=== PATIENT | female | born 1960 | race Caucasian/White ===

== ENCOUNTER 2016-09-20 14:44 | Emergency (ER) | payer OTHER ==
[~2016-09-20] VITALS: Ht 170.2 cm; Wt 73.6 kg
[~2016-09-20 14:44] MED LIST: ASPI81TA3 PO; MULT-36 PO; PRAV10TA2 PO
[2016-09-20 14:54] VITALS: BP 148/90; PULSE 66; RESP 18; O2SAT 96
--- NOTE | 2016-09-20 16:51 | DRSVH ---
PROCEDURE: X-RAY CHEST, TWO VIEWS ([id number]) INDICATIONS: CHEST PAIN TECHNIQUE: 2 views of the chest were acquired. COMPARISON: None. FINDINGS: Surgical changes and devices: None. Lungs and pleura: No pleural effusions or pneumothorax. Lungs are clear. Mediastinum: Mediastinal contours are normal. Heart size is normal. Bones and chest wall: No suspicious bony abnormalities. Soft tissues appear unremarkable. IMPRESSION: No acute cardiopulmonary disease process. Dictated by: Roya Valdez MD, PhD on 09/20/2016 at 16:48 Approved by: Roya Valdez MD, PhD on 09/20/2016 at 16:49
[2016-09-20 17:07] LABS: BASOPHILS % (AUTO) 0.5 % (0-3); EOSINOPHILS % (AUTO) 2.2 % (0-5); MONOCYTES % (AUTO) 6.7 % (4-12); Mean Corpuscular Hemoglobin 29.2 pg (27.0-35.0); Mean Corpuscular Volume 85.2 fL (81-100); NEUTROPHILS % (AUTO) 57.8 % (40-74); Platelet Count 358 bil/L (150-400)
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
[2016-09-20 17:33] LABS: TROPONIN T < 0.010 ug/L (0.0-0.011)
[2016-09-20 17:44] LABS: Magnesium 2.2 mg/dL (1.6-2.6)
[2016-09-20 19:11] VITALS: BP 116/74; PULSE 58; RESP 14; O2SAT 99
== END 2016-09-20 19:12 | disposition home or self-care (01) ==
LOC: SED 14:44
DX: R07.89 Other chest pain (principal); E78.5 Hyperlipidemia, unspecified; I50.9 Heart failure, unspecified; I25.10 Atherosclerotic heart disease of native coronary artery without angina pectoris; E11.9 Type 2 diabetes mellitus without complications; I10 Essential (primary) hypertension; Z79.82 Long term (current) use of aspirin

== ENCOUNTER 2017-04-16 19:09 | Emergency (ER) | payer OTHER ==
[~2017-04-16] VITALS: Ht 167.6 cm; Wt 74.0 kg
[2017-04-16 19:19] VITALS: BP 133/68; PULSE 66; RESP 18; O2SAT 96
--- NOTE | 2017-04-16 19:52 | ED.REPORT ---
HPI-Chest Pain 40 and Over Date of Service Apr 16, 2017 ED Provider: Amos Burton Pt is a 56 y/o female with a history of hyperlipidemia who presents to the ED c/ o right-sided shoulder pain onset yesterday s/p lifting her arm. She states her pain started as her right shoulder, but radiated across her chest and to her left shoulder today. She denies SOB, nausea, fever, cough, chills, neck pain, or headache. Nursing Notes Stated Complaint: SHOULDER TO SHOULDER PAIN ABOVE CHEST Chief Complaint: Chest Pain Nursing Notes Reviewed: Yes Allergies: Coded Allergies: No Known Allergies (Verified Allergy, Unknown, 03/03/16) Uncoded Allergies: CLAMS (Allergy, Unknown, 01/08/14) Scheduled Aspirin Chew (Aspirin Chew) 81 Mg Tab.chew 81 MG PO DAILY Multivitamin (Daily Multiple Vitamin) 1 Each Tablet 1 EACH PO DAILY Pravastatin (Pravastatin) 10 Mg Tablet 10 MG PO HS General Time Seen by MD: 19:51 Chief Complaint Other (R-sided shoulder pain) Hx Obtained From: Patient Arrived By: Walk-in Sudden in Onset?: No Onset Occurred: Yesterday Symptom Duration: Constant Quality: Painful Severity: Current: Mild Severity: Maximum: Moderate Recent Healthcare: No recent doctor visit, No recent hospitalization Similar Sx Previous: No Risk Factors )( CAD Risk Stratification Hyperlipidemia Risk factors reviewed )( TAD Risk Stratification Risk factors reviewed, No risk factors )( PE Risk Stratification Risk factors reviewed, No risk factors Past Medical History Past Medical History Reports: Hyperlipidemia Past Surgical History Reports: Appendectomy, Hysterectomy Family History Father: quadruple bypass (age: 60) Grandfather: of [place] Sister: (3years younger) pacemaker Smoking History Never Smoker Social History Alcohol Use: Denies alcohol use Drug Use: Denies drug use Other Social History: Good social support, Ambulatory Status Independent Review of Systems Constitutional: Denies: Chills, Fever Respiratory: Denies: Non-productive cough, Prod cough, clear, Shortness of breath Cardiovascular: Reports: Chest pain GI: Denies: Nausea Musculoskeletal: Reports: Extremity swelling, Denies: Neck pain Neurologic: Denies: Headache Complete sys rev & neg: except as marked. Physical Exam Initial Vital Signs Vital Signs (First) Date Time Temp Pulse Resp B/P Pulse Ox O2 Delivery O2 Flow Rate FiO2 04/16/17 19:19 36.6 66 18 133/68 96 Room Air Initial VS: Reviewed Head / Eyes: Atraumatic, Normocephalic Neck: Supple, Full range of motion Skin: Warm, Dry, No cyanosis Neurologic: Alert, Oriented, Nonfocal Psychiatric: Mood/affect normal, Behavior normal, Normal thought content General/Constitutional: Awake, Alert Respiratory / Chest: Atraumatic, Breath sounds NL, Breath sounds = bilat, No respiratory distress Cardiovascular: Heart rate NL, Regular rhythm, Heart sounds NL Abdomen: Soft, Non-tender Upper Extremity / MS: Neurologic intact, Vascular intact Fully reproducible pain with abduction Rotator cuff tendinopathy Interpretation & Diagnostics Lab Results Interpretation Result Diagram: 04/16/178 04/16/17 2118 Test 04/16/17 21:18 04/16/17 23:50 White Blood Count 12.3th/mm3 (3.8-10.1) Red Blood Count 4.49mil/mm3 (3.90-5.20) Hemoglobin 13.2g/dL (12.0-15.6) Hematocrit 38.9% (35.0-46.0) Mean Corpuscular Volume 86.6fL (81-100) Mean Corpuscular Hemoglobin 29.4pg (27.0-35.0) Mean Corpuscular Hemoglobin Concent 33.9% (32.0-37.0) Red Cell Distribution Width 13.1% (12.3-15.4) Platelet Count 343bil/L (150-400) Neutrophils (%) (Auto) 64.1% (40-74) Lymphocytes (%) (Auto) 27.1% (14-46) Monocytes (%) (Auto) 6.3% (4-12) Eosinophils (%) (Auto) 2.0% (0-5) Basophils (%) (Auto) 0.3% (0-3) D-Dimer < 0.5mg/L FEU (<0.50) Sodium Level 141mEq/L (134-144) Potassium Level 3.4mEq/L (3.5-5.2) Chloride Level 101mEq/L (97-108) Carbon Dioxide Level 23mmol/L (18-29) Blood Urea Nitrogen 16mg/dL (6-24) Creatinine 0.87mg/dL (0.57-1.00) Estimat Glomerular Filtration Rate 96mL/min (>59) Glucose Level 112mg/dL (60-99) Calcium Level 9.6mg/dL (8.5-10.1) Magnesium Level 2.1mg/dL (1.6-2.6) Total Bilirubin 0.7mg/dL (0.0-1.2) Aspartate Amino Transf (AST/SGOT) 25U/L (0-50) Alanine Aminotransferase (ALT/SGPT) 35U/L (0-32) Alkaline Phosphatase 60U/L (25-150) Total Protein 7.3g/dL (6.4-8.4) Albumin 4.3g/dL (3.4-5.0) Troponin T 0.010ug/L (0.0-0.011) ECG Interpretation ECG Interpretation: Sinus rhythm, rate 60 Time: 19:48 Interpreted by: ED physician X-Ray Chest Interpretation Chest Xray Interpretation: IMPRESSION: No acute cardiopulmonary findings. Dictated by: Carolina Mack M.D. on 04/16/2017 at 20:27 Approved by: Carolina Mack M.D. on 04/16/2017 at 20:27 View: Portable, 1 view Interpretation / Wet Read by: Interpret - Radiologist Re-Eval/Medical Decision Med Decision/Clinical Course Pain is fully reproduced with range of motion at the right shoulder. Most likely rotator cuff tendinopathy. No evidence of joint infection. NH ruled out based on history, physical biochemical analysis. D-dimer testing was negative. Low risk well score. Further diagnostics not indicated. Symptomatic relief indicated. Opiate warnings given. Close outpatient referral recommended. Source of Hx: Old records Time of Eval: 00:18 Patient Status: Condition improved Re-Evaluation/Progress Note: Patient rechecked. Discussed plan for discharge. Patient understands and agrees with plan. F/U instructions and RTER warnings given. All questions addressed at this time. Counseled Regarding: Diagnosis, Lab results, Need for follow-up, When/why to return to ED Discharge & Departure Primary Impression: Right shoulder pain Chronicity: acute Qualified Code: M25.511 - Pain in right shoulder Additional Impression: Non-cardiac chest pain Disposition: Home Discharge Condition All VS Reviewed: Yes Condition: Stable Patient Instructions: Chest Pain (ED), Rotator Cuff Tendinitis (DC) Additional Instructions: The electrocardiogram and serial heart blood tests were normal. Your heart score puts him at low risk for this being a cardiac problem. Your symptoms are clearly musculoskeletal and most likely related to right rotator cuff tendon. Your blood clot blood test was negative. Take Naprosyn twice daily for the next 5 days. Take this with food. Take 1-2 [place] every 6 hours as needed for breakthrough pain. This is an opiate and can be habit forming so uses sparingly. Do not drive or drink alcohol or consume acetaminophen while taking the [place]. Follow up with her primary care physician. You may need an MRI or possible orthopedic referral as well. Call tomorrow to set up a follow-up. Return if any problems or any new or worrisome symptoms. Referrals: Heather Marquez PA-C (PCP) Scribe Attestation Portions of this note were transcribed by Libby Lu. I, Dr. Burton, personally performed the history, physical exam and medical decision-making; I reviewed and confirmed the accuracy of the information in the transcribed note. copies to: Heather Marquez PA-C, Todd P DO Apr 16, 2017 19:51 Libby Lu Apr 16, 2017 20:14
--- NOTE | 2017-04-16 20:29 | DRSVH ---
PROCEDURE: X-RAY CHEST ONE VIEW, PORTABLE ([id number]) INDICATIONS: CHEST PAIN TECHNIQUE: One view of the chest was acquired. COMPARISON: None. FINDINGS: Surgical changes and devices: None. Lungs and pleura: No pleural effusions or pneumothorax. Lungs are clear. Mediastinum: Mediastinal contours appear normal. Heart size is normal. Bones and chest wall: No suspicious bony lesions. Overlying soft tissues appear unremarkable. IMPRESSION: No acute cardiopulmonary findings. Dictated by: Carolina Mack M.D. on 04/16/2017 at 20:27 Approved by: Carolina Mack M.D. on 04/16/2017 at 20:27
[2017-04-16] MEDS ORDERED: HYDROcodone-APAP 5-325 mg Tablet PO ONE (21:00)
[2017-04-16 21:22] LABS: BASOPHILS % (AUTO) 0.3 % (0-3); MONOCYTES % (AUTO) 6.3 % (4-12); Mean Corpuscular Hemoglobin 29.4 pg (27.0-35.0); Mean Corpuscular Volume 86.6 fL (81-100); NEUTROPHILS % (AUTO) 64.1 % (40-74); Platelet Count 343 bil/L (150-400)
[2017-04-16 21:42] LABS: TROPONIN T 0.01 ug/L (0.0-0.011)
[2017-04-16 21:53] LABS: Magnesium 2.1 mg/dL (1.6-2.6)
[2017-04-17 00:52] VITALS: BP 122/58; PULSE 57; RESP 16; O2SAT 96
== END 2017-04-17 00:30 | disposition home or self-care (01) ==
LOC: SED 19:09
DX: M25.511 Pain in right shoulder (principal); R07.89 Other chest pain; X50.0XXA Overexertion from strenuous movement or load, initial encounter; Y93.89 Activity, other specified; Y99.8 Other external cause status; Y92.9 Unspecified place or not applicable; E78.5 Hyperlipidemia, unspecified; Z90.710 Acquired absence of both cervix and uterus; Z90.89 Acquired absence of other organs
CPT/HCPCS: 36415; 71010; 80053; 83735; 84484; 85025; 85378; 93005; 96374; 99285; J1885

== ENCOUNTER 2017-04-18 16:19 | Emergency (ER) | payer OTHER ==
[~2017-04-18] VITALS: Ht 170.2 cm; Wt 73.0 kg
[2017-04-18 16:29] VITALS: BP 147/83; RESP 16; O2SAT 96
--- NOTE | 2017-04-18 17:15 | ED.REPORT ---
HPI-General Illness Date of Service Apr 18, 2017 ED Provider: Lela is an otherwise healthy 56-year-old female presenting to the emergency department with a chief complaint of throat pain. Patient complains of pain at the base of her throat that began this afternoon. She reports it is difficult for her to swallow, and that skin at the base of her throat is tender. Denies lip or tongue swelling, sensation of airway closing, shortness of breath, fever , shaking chills, bowel changes, heat/cold intolerance. The patient was recently discharged from this department diagnosed with rotator cuff tendinopathy with prescriptions for naproxen and Vicodin. She reports taking Vicodin previously and using NSAIDs previously without complication. Denies history of thyroid issues. Nursing Notes Stated Complaint: THROAT PAIN Chief Complaint: ENT & Mouth Nursing Notes Reviewed: Yes Allergies: Coded Allergies: No Known Allergies (Verified Allergy, Unknown, 03/03/16) Uncoded Allergies: CLAMS (Allergy, Unknown, 01/08/14) Scheduled Aspirin Chew (Aspirin Chew) 81 Mg Tab.chew 81 MG PO DAILY Multivitamin (Daily Multiple Vitamin) 1 Each Tablet 1 EACH PO DAILY Pravastatin (Pravastatin) 10 Mg Tablet 10 MG PO HS General Time Seen by MD: 17:15 Chief Complaint Other (throat pain) Past Medical History Past Medical History Denies Reports: Hyperlipidemia Past Surgical History Reports: Appendectomy, Hysterectomy Family History Father: quadruple bypass (age: 60) Grandfather: of [place] Sister: (3years younger) pacemaker Smoking History Never Smoker Social History Alcohol Use: Denies alcohol use Drug Use: Denies drug use Other Social History: Good social support, Ambulatory Status Independent Review of Systems Negative unless stated otherwise in history of present illness Physical Exam General: Well appearing, well developed, well nourished, no acute distress. Head: Atraumatic, normocephalic. No mastoid tenderness. Eyes: No scleral icterus or injection. No discharge. PERRL. Vision grossly intact. Ears: Pinna and tragus nontender with manipulation. External auditory canal patent, atraumatic and without discharge. Tympanic membrane lugo, shiny and translucent without fluid, bulging, retraction or perforation. Hearing grossly intact. Nose: Symmetrical, nares patent without discharge. No frontal or maxillary sinus tenderness. Mouth/pharynx: normal dentition, mucus membranes moist. Tonsils 2+ and symmetrical, uvula midline. Pharynx noninjected, no cobblestoning or discharge. Voice clear. Neck: Mild tenderness and fullness at the base of the neck. Negative lymphadenopathy. Trachea midline. Respiratory: Regular rate and rhythm. Breath sounds present, clear to auscultation and equal bilaterally. No respiratory distress. No increased work of breathing, speaks in complete sentences. Cardiovascular: Regular rate and rhythm, without murmur, gallop or rub. No pedal edema. Gastrointestinal: Abdomen flat and non-tender without guarding or rebound. Bowel sounds normoactive. Skin: Warm and dry. Neurological: Grossly nonfocal. Psychological: Alert and oriented. Speech appropriate, linear and logical. Behavior appropriate. Vital Signs Vital Signs Date Time Temp Pulse Resp B/P Pulse Ox O2 Delivery O2 Flow Rate FiO2 04/18/17 16:29 36.8 63 16 147/83 96 Room Air Elevated blood pressure Interpretation & Diagnostics Interpretation & Diagnostics: PROCEDURE: CT NECK SOFT TISSUES WITH CONTRAST ([id number]) INDICATIONS: neck swelling, tenderness IMPRESSION: 1. The mass arising from the isthmus of thyroid gland corresponding to the palpable abnormality. Recommend nonurgent thyroid ultrasound and fine needle aspiration biopsy if clinically indicated. 2. Prominent superior mediastinal lymph nodes just below the thyroid gland are noted. 3. A 3 mm nodule in the right major fissure. Recommend a followup CT in 3 months. Lab Results Interpretation Result Diagram: 04/18/17190604/18/171906 Test 04/18/17 19:07 White Blood Count 9.8th/mm3 (3.8-10.1) Red Blood Count 4.50mil/mm3 (3.90-5.20) Hemoglobin 13.0g/dL (12.0-15.6) Hematocrit 39.1% (35.0-46.0) Mean Corpuscular Volume 86.9fL (81-100) Mean Corpuscular Hemoglobin 28.9pg (27.0-35.0) Mean Corpuscular Hemoglobin Concent 33.2% (32.0-37.0) Red Cell Distribution Width 13.1% (12.3-15.4) Platelet Count 324bil/L (150-400) Neutrophils (%) (Auto) 61.6% (40-74) Lymphocytes (%) (Auto) 27.3% (14-46) Monocytes (%) (Auto) 8.4% (4-12) Eosinophils (%) (Auto) 2.1% (0-5) Basophils (%) (Auto) 0.4% (0-3) Sodium Level 140mEq/L (134-144) Potassium Level 3.9mEq/L (3.5-5.2) Chloride Level 103mEq/L (97-108) Carbon Dioxide Level 23mmol/L (18-29) Blood Urea Nitrogen 13mg/dL (6-24) Creatinine 0.63mg/dL (0.57-1.00) Estimat Glomerular Filtration Rate 140mL/min (>59) Glucose Level 100mg/dL (60-99) Calcium Level 9.4mg/dL (8.5-10.1) Total Bilirubin 0.7mg/dL (0.0-1.2) Aspartate Amino Transf (AST/SGOT) 22U/L (0-50) Alanine Aminotransferase (ALT/SGPT) 31U/L (0-32) Alkaline Phosphatase 67U/L (25-150) Total Protein 7.5g/dL (6.4-8.4) Albumin 4.2g/dL (3.4-5.0) Thyroid Stimulating Hormone (TSH) 2.260uIU/mL (0.450-4.500) Re-Eval/Medical Decision Med Decision/Clinical Course Otherwise healthy 56-year-old female presents complaining of throat pain, difficulty swallowing. Reports being seen in this department for shoulder pain and discharged with naproxen and Vicodin which she is concerned might be causing this. Complains of pain to the base of her throat as well as tenderness. Denies other symptoms including lip/tongue swelling, sensation of airway closure. Physical examination reveals mild to moderate swelling at the base for throat as well as some boggy fullness with associated tenderness. Otherwise normal, with normal vital signs. I discussed the case with Dr. Cruz and who advises soft tissue neck CT. CBC, CMP and TSH returned normal. CT scan reveals A mass arising from the isthmus of the thyroid gland as well as a 3 mm nodule in the right major fissure and prominent superior mediastinal lymph nodes. Radiologist advises nonurgent thyroid ultrasound and fine needle aspiration biopsy. At this point I am reassured against abscess, anaphylaxis, thyroid storm, cellulitis. I believe she is stable and safe to be discharged home. I discussed these findings with the patient. Advised regarding primary care follow-up, provided emergency return precautions. Patient verbalized understanding of, and consent to, the plan. Discharge & Departure Primary Impression: Thyroid mass Disposition: Home Discharge Condition All VS Reviewed: Yes Condition: Stable Patient Instructions: Thyroid Nodules (ED) Additional Instructions: Evaluation for throat pain in the emergency department include interview, physical examination, blood work and CT scan, which reveal a small mass on your thyroid. Your blood work is otherwise normal. We believe you are stable and safe to go home at this time. Please follow up on this with your primary care provider. It is recommended that you pursue a thyroid ultrasound and fine needle aspiration biopsy. Return to the emergency department for new or worsening symptoms including difficulty breathing, chest pain, racing heart. Referrals: Heather Marquez PA-C (PCP) EDSupervising Provider for APC: Mike Cruz DO Attending Statement I saw, examined, and discussed this pt with MIKAELA Mckeon,and I agree with the documentation above. copies to: Heather Marquez PA-C, Kirk H MD Apr 18, 2017 17:15 Brandan Varghese PA-C Apr 18, 2017 18:39 Mike Cruz DO Apr 20, 2017 19:44
[2017-04-18 19:18] LABS: BASOPHILS % (AUTO) 0.4 % (0-3); EOSINOPHILS % (AUTO) 2.1 % (0-5); MONOCYTES % (AUTO) 8.4 % (4-12); Mean Corpuscular Hemoglobin 28.9 pg (27.0-35.0); Mean Corpuscular Volume 86.9 fL (81-100); NEUTROPHILS % (AUTO) 61.6 % (40-74); Platelet Count 324 bil/L (150-400)
--- NOTE | 2017-04-18 19:43 | DRSVH ---
PROCEDURE: CT NECK SOFT TISSUES WITH CONTRAST ([id number]) INDICATIONS: neck swelling, tenderness TECHNIQUE: After the administration of intravenous contrast, 3.0 mm axial sections acquired from the sella to th e aortic arch. Additional oblique axial 3.0 mm sections acquired through the pharynx. 3 mm thick co ernie reformats were generated. For radiation dose reduction, the following was used: automated exp osure control. COMPARISON: None. FINDINGS: Image quality: Excellent. Lymph nodes: No enlarged lymph nodes seen throughout the neck. Prominent, but still normal-sized pre tracheal lymph nodes are noted in the superior mediastinum measuring up to 9 mm. Vessels: Visualized vasculature appears patent. Neck spaces: The oropharynx, nasopharynx, and pharynx demonstrate no mucosal lesions. The vocal cor ds, false vocal cords, pyriform sinuses, epiglottis, vallecula, and tongue base all appear normal. E xtramucosal spaces appear unremarkable. Glands: There is a mass arising from the isthmus of the thyroid gland measuring 1.6 x 2.8 x 2.0 cm, correlating with the palpable abnormality. The parotid and submandibular glands appear normal. Miscellaneous: Visualized brain and orbits appear normal. There is a 3 mm nodule in the right major fissure. Superficial soft tissues appear normal. Bones: No suspicious bony lesions. Visualized sinuses and mastoids appear unremarkable. IMPRESSION: 1. The mass arising from the isthmus of thyroid gland corresponding to the palpable abnormality. José mmend nonurgent thyroid ultrasound and fine needle aspiration biopsy if clinically indicated. 2. Prominent superior mediastinal lymph nodes just below the thyroid gland are noted. 3. A 3 mm nodule in the right major fissure. Recommend a followup CT in 3 months. Fleischner Society criteria for SOLID lung nodule followup. Nodule size (mm)Low-risk patientHigh-risk [id number] follow-up neededFollow-up at 12 mo; if no kelsey e, no further follow-up>[id number] CT at 12 mo; if no change, no further follow-up needed.Initial f ollow-up CT at 6-12 mo, then 18-24 mo if no change. >6-8Initial follow-up CT at 6-12 mo, then 18-24 mo if no change. Initial follow-up CT at 3-6 mo, then 9-12 mo and 24 mo if no change. >8Follow-up CT at 3, 9, 24 mo. Or PET and/or biopsy.Same as for low-risk pts. Dictated by: Josiane Argueta M.D. on 04/18/2017 at 19:34 Approved by: Josiane Argueta M.D. on 04/18/2017 at 19:41
== END 2017-04-18 20:59 | disposition home or self-care (01) ==
LOC: SED 16:19
DX: E07.9 Disorder of thyroid, unspecified (principal); E78.5 Hyperlipidemia, unspecified; Z79.82 Long term (current) use of aspirin
CPT/HCPCS: 36415; 70491; 80053; 84443; 85025; 99284; Q9967